=== PATIENT | female | born 1965 | race African-American/Black ===

== ENCOUNTER 2016-05-24 09:38 | Emergency (ER) ==
[2016-05-24 10:07] LABS: MANUAL DIFF NEEDED? NO
[2016-05-24 10:16] LABS: BASO% 0.9 % (0.0-0.8); EOS# 0.18 X1000 (0.0-0.7); EOS% 2.7 % (0.0-10.0); HEMATOCRIT 43.2 % (37.0-47.0); HEMOGLOBIN 13.9 g/dL (12.0-16.0); IMM GRAN# 0.02 X1000 (0.0-0.04); IMM GRAN% 0.3 % (0.0-0.5); LYMPH# 2.36 X1000 (1.2-3.4); LYMPH% 35.8 % (20.5-51.1); MCH 26.5 PG (27-31); MCHC 32.2 g/dL (33-37); MCV 82.3 FL (81-99); MONO# 0.79 X1000 (0.11-0.59); MPV 13.3 FL (7.4-10.4); NEUT% 48.3 % (42.2-75.2); PLT 206 X1000 (130-400); RBC 5.25 XMIL (4.2-5.4)
[2016-05-24 10:27] LABS: AGAP 11; ALKALINE PHOSPHATASE 110 U/L (32-104); BUN 9 mg/dL (8-22); CALCIUM 8.8 mg/dL (8.8-10.2); CHLORIDE 101 mmol/L (98-107); COSMO 275; GOT 19 U/L (10-30); GPT 17 U/L (10-36); POTASSIUM 3.9 mmol/L (3.5-5.1); SODIUM 139 mmol/L (136-145); TCO2 27 mmol/L (25-35); TOTAL BILIRUBIN 0.67 mg/dL (0.20-1.00); TOTAL PROTEIN 7.5 g/dL (6.3-8.3)
[2016-05-24 10:33] LABS: URINE CULTURE NEEDED? NO; URINE MICRO REVIEW NEEDED? NO; URINE SOURCE CLEAN CATCH
[2016-05-24 10:39] LABS: BILIRUBIN URINE NEGATIVE (NEGATIVE); BLOOD URINE TRACE (NEGATIVE); COLOR STRAW; GLUCOSE URINE NEGATIVE (NEGATIVE); LEUKOCYTES URINE NEGATIVE (NEGATIVE); NITRITE URINE NEGATIVE (NEGATIVE); PH URINE 7.5; PROTEIN URINE NEGATIVE (NEGATIVE); SP GRAVITY URINE 1.008; TURBIDITY URINE CLEAR (CLEAR); UROBILINOGEN URINE NORMAL (NORMAL)
[2016-05-24 10:41] LABS: UR EPITHELIAL CELLS <10 /HPF (<10); URINE BACTERIA NEGATIVE /HPF; URINE RBC <10 /HPF (<10); URINE WBC <10 /HPF (<10)
[2016-05-24 10:58] LABS: MAGNESIUM 1.9 mg/dL (1.5-2.7)
[2016-05-24] MEDS ORDERED: NORVASC PO ONE (11:01)
[2016-05-24 11:12] LABS: INR 1.03; PROTIME 10.9 Seconds (9.2-11.7); PTT 29.9 Seconds (22.0-36.0)
--- NOTE | 2016-05-24 11:49 | PROVIDER DOCUMENTATION ---
HPI-General Adult - General Chief Complaint: General Adult Stated Complaint: LIGHTHEADED,LEFT ARM TINGLING,DIZZINESS Time Seen by Provider: 05/24/16 10:31 Source: patient Allergies/Adverse Reactions: Patient Allergies Allergy/AdvReac Type Severity Reaction Status Date / Time ketorolac tromethamine * Allergy Intermediate VOMITING Verified 03/06/12 14:42 [From Toradol] aspirin Allergy Unknown Unknown Verified 03/06/12 14:42 Home Medications: Home Medication List Medication Instructions Recorded Confirmed Last Taken Type Metoprolol [Lopressor] 25 mg PO DIRECTED #60 tablet 03/06/12 Unknown Rx Montelukast [Singulair] 10 mg PO DAILY 03/06/12 03/06/12 03/05/12 History Amlodipine Besylate [Norvasc] 5 mg PO DAILY PRN PRN #10 tablet 05/24/16 Unknown Rx - History of Present Illness -Gen Adult Nature of Presenting Problems: 51 y/o F presented with non specific symptoms of occasional dizziness and lightheadedness, and she also noticed occasional numbness in the left arm. Patient does not have any significant past medical history except for lumbar radiculopathy and GERD. She denies any other symptoms. Location of Pain/Injury: reports: none Onset/Duration: reports: gradual Timing: reports: intermittent Review of Systems - Adult - REVIEW OF SYSTEMS - ADULT Constitutional: reports: no symptoms reported Eyes: reports: blurred vision Ears, Nose, Mouth & Throat: reports: no symptoms reported Cardiovascular: reports: no symptoms reported Respiratory: reports: no symptoms reported Gastrointestinal: reports: other (heart burn) Genitourinary: reports: no symptoms reported Musculoskeletal: reports: no symptoms reported Integumentary: reports: no symptoms reported Neurological: reports: dizziness/vertigo, numbness Psychiatric: reports: no symptoms reported Endocrine: reports: no symptoms reported Hematologic/Lymphatic: reports: no symptoms reported Allergic/Immunologic: reports: no symptoms reported Past History - Adult - PAST MEDICAL HISTORY-ADULT Review of Records: reports: Medications Reviewed, Social history reviewed & non- contributory. Major Childhood Illnesses: reports: denies history Cardiovascular: reports: denies history Respiratory: reports: denies history Gastrointestinal: reports: GERD Genitourinary: reports: denies history Musculoskeletal: reports: denies history Neurological: reports: degenerative disease (lumbar) Psychiatric: reports: denies history Endocrine/Immune: reports: denies history Physical Exam-General - PHYSICAL EXAM-ADULT Initial Vital Signs Reviewed: Yes - CONSTITUTIONAL General Appearance: appears well - EYES Eyes: PERRL/EOMI - HEAD, EARS, NOSE, MOUTH & THROAT HENMT: normocephalic/atraumatic - NECK Neck: full range of motion, supple - RESPIRATORY Respiratory: lungs clear, normal breath sounds - CARDIOVASCULAR Cardiovascular: regular rate, rhythm - GASTROINTESTINAL (ABDOMEN) Abdominal Exam: non tender, soft - MUSCULOSKELETAL Back Exam: normal inspection Extremity: normal range of motion, normal gait DTR: knee (R): 2+, knee (L): 2+ - NEUROLOGIC Neurologic: grossly normal, no motor/sensory deficits. negative: facial droop, focal weakness - PSYCHIATRIC Psych/Mental Status: oriented x 3 Progress - PLAN OF CARE/RESULTS Progress/Plan/Lab Results: Laboratory Tests 05/24/16 05/24/16 05/24/16 09:54 09:54 09:54 WBC 6.59 RBC 5.25 Hgb 13.9 Hct 43.2 MCV 82.3 MCH 26.5 L MCHC 32.2 L RDW Std Deviation 13.2 Plt Count 206 MPV 13.3 H Immature Gran % (Auto) 0.3 Neut % (Auto) 48.3 Lymph % (Auto) 35.8 [place] % (Auto) 12.0 H Eos % (Auto) 2.7 Baso % (Auto) 0.9 H Immature Gran # (Auto) 0.02 Neut # (Auto) 3.18 Lymph # (Auto) 2.36 [place] # (Auto) 0.79 H Eos # (Auto) 0.18 Baso # (Auto) 0.06 PT INR PTT (Actin FS) D-Dimer Sodium 139 Potassium 3.9 Chloride 101 Carbon Dioxide 27 Anion Gap 11 BUN 9 Creatinine 0.7 Estimated GFR/1.73 m2 > 60 BUN/Creatinine Ratio 13 Glucose 84 Calculated Osmolality 275 Calcium 8.8 Magnesium 1.9 Total Bilirubin 0.67 AST 19 ALT 17 Alkaline Phosphatase 110 H Creatine Kinase 89 Troponin T Total Protein 7.5 Albumin 4.0 Globulin 3.5 Albumin/Globulin Ratio 1.1 Urine Source Urine Color Urine Turbidity Urine pH Ur Specific [place] Urine Protein Ur Glucose (Stick) Ur Ketones (Stick) Urine Blood Urine Nitrite Urine Bilirubin Urobilinogen Dipstick Urine Leukocytes Urine WBC (Auto) Urine RBC (Auto) U Epithel Cells (Auto) Urine Bacteria (Auto) 05/24/16 05/24/16 05/24/16 09:54 09:54 09:54 WBC RBC Hgb Hct MCV MCH MCHC RDW Std Deviation Plt Count MPV Immature Gran % (Auto) Neut % (Auto) Lymph % (Auto) [place] % (Auto) Eos % (Auto) Baso % (Auto) Immature Gran # (Auto) Neut # (Auto) Lymph # (Auto) [place] # (Auto) Eos # (Auto) Baso # (Auto) PT 10.9 INR 1.03 PTT (Actin FS) 29.9 D-Dimer 0.32 Sodium Potassium Chloride Carbon Dioxide Anion Gap BUN Creatinine Estimated GFR/1.73 m2 BUN/Creatinine Ratio Glucose Calculated Osmolality Calcium Magnesium Total Bilirubin AST ALT Alkaline Phosphatase Creatine Kinase Troponin T < 0.010 Total Protein Albumin Globulin Albumin/Globulin Ratio Urine Source Urine Color Urine Turbidity Urine pH Ur Specific [place] Urine Protein Ur Glucose (Stick) Ur Ketones (Stick) Urine Blood Urine Nitrite Urine Bilirubin Urobilinogen Dipstick Urine Leukocytes Urine WBC (Auto) Urine RBC (Auto) U Epithel Cells (Auto) Urine Bacteria (Auto) 05/24/16 10:12 WBC RBC Hgb Hct MCV MCH MCHC RDW Std Deviation Plt Count MPV Immature Gran % (Auto) Neut % (Auto) Lymph % (Auto) [place] % (Auto) Eos % (Auto) Baso % (Auto) Immature Gran # (Auto) Neut # (Auto) Lymph # (Auto) [place] # (Auto) Eos # (Auto) Baso # (Auto) PT INR PTT (Actin FS) D-Dimer Sodium Potassium Chloride Carbon Dioxide Anion Gap BUN Creatinine Estimated GFR/1.73 m2 BUN/Creatinine Ratio Glucose Calculated Osmolality Calcium Magnesium Total Bilirubin AST ALT Alkaline Phosphatase Creatine Kinase Troponin T Total Protein Albumin Globulin Albumin/Globulin Ratio Urine Source CLEAN CATCH Urine Color STRAW Urine Turbidity CLEAR Urine pH 7.5 Ur Specific [place] 1.008 Urine Protein NEGATIVE Ur Glucose (Stick) NEGATIVE Ur Ketones (Stick) NEGATIVE Urine Blood TRACE A Urine Nitrite NEGATIVE Urine Bilirubin NEGATIVE Urobilinogen Dipstick NORMAL Urine Leukocytes NEGATIVE Urine WBC (Auto) <10 Urine RBC (Auto) <10 U Epithel Cells (Auto) <10 Urine Bacteria (Auto) NEGATIVE Vital Signs - 24 hr 05/24/16 09:42 Temperature 98.3 F Pulse Rate 94 H Respiratory 18 Rate Blood Pressure 172/84 O2 Sat by Pulse 100 Oximetry - EKG 1 Time of EKG reading by physician:: 11:50 EKG Read and Signed by:: Dolores Atwood EKG Interpretation (*Must complete 3 of following elements*): Normal Rate: 84 Rhythm: NSR QRS: normal NE Interval: normal ST Wave: normal - XRAY 1 XRAY Study: C-Spine (Mild degenerativde disc changes) 2 XRAY Study: Chest Impression: Normal Departure - Departure Time of Disposition Order: 11:52 DIAGNOSIS: Cervical radiculopathy, Hypertension DIAGNOSIS: (Ruled Out): Hypertensive urgency Disposition: HOME 01 Certified Medical Emergency: Emergent Condition: Fair Prescriptions: Amlodipine Besylate [Norvasc] 5 mg PO DAILY PRN PRN #10 tablet PRN Reason: Hypertension Referrals: Jose Luis Lam MD [Primary Care Provider] -
--- NOTE | 2016-05-24 13:17 | Diag Imaging Result Document ---
PROCEDURE NAME: CHEST-2 VIEWS - 05/24/2016 CHEST, 2 VIEWS: COMPARISON: 03/06/2012. FINDINGS: Heart size appears upper normal. Inspiration is mildly shallow. The lungs appear clear. There is no pleural effusion or pneumothorax identified. There is thoracic spondylosis noted. IMPRESSION: Mildly shallow inspiration. No other evidence of acute disease.
--- NOTE | 2016-05-24 13:19 | Diag Imaging Result Document ---
PROCEDURE NAME: CERVICAL SPINE COMPLETE - 05/24/2016 CERVICAL SPINE, 7 VIEWS: FINDINGS: There is mild curvature, convex to the left, which may be positional or may relate to mild scoliosis. There is straightening of the normal lordosis which may relate to muscle spasm. There are mild degenerative changes. There is no fracture, subluxation, or precervical soft tissue swelling identified. IMPRESSION: 1. Possible muscle spasm. 2. Mild degenerative changes. 3. No evidence of fracture or subluxation.
[2016-05-24] MEDS ORDERED: TYLENOL PM PO ONE (13:41)
[2016-05-24 14:54] VITALS: BP 169/96
--- NOTE | 2016-05-26 09:20 | EKG Report ---
Test Performed on : 05/24/2016 09:50:35 AM Test Reason : DIZZINESS Blood Pressure : / mmHG Vent. Rate : 084 BPM Atrial Rate : 084 BPM P-R Int : 142 ms QRS Dur : 080 ms QT Int : 380 ms P-R-T Axes : 066 -14 005 degrees QTc Int : 449 ms Normal sinus rhythm. Moderate voltage criteria for LVH, may be normal variant Borderline ECG When compared with ECG of 06-MAR-2012 14:26, No significant change was found Unconfirmed Result
== END 2016-05-24 14:54 | disposition home or self-care (01) ==
LOC: ED 09:38
DX: M54.12 Radiculopathy, cervical region (principal); I10 Essential (primary) hypertension; R42 Dizziness and giddiness; R20.2 Paresthesia of skin; R20.0 Anesthesia of skin; H53.8 Other visual disturbances; R12 Heartburn
CPT/HCPCS: 36415; 71020; 72050; 80053; 81001; 82550; 83735; 84484; 85025; 85379; 85610; 85730; 93005; 99284

== ENCOUNTER 2016-06-03 05:16 | Day surgery (SDC) ==
[2016-06-03] MEDS ORDERED: LR 1,000 ML ONE (06:09)
[2016-06-03] MEDS ORDERED: FENTANYL ONE (07:25)
[2016-06-03] MEDS ORDERED: DIPRIVAN 1% ONE ×2 (07:25→08:25)
[2016-06-03] MEDS ORDERED: MYLICON DROPS (DOSE) MISC ONE (07:49)
[2016-06-03 09:18] VITALS: BP 144/81
[2016-06-03] MEDS ORDERED: XYLOCAINE-MPF 2% ONE (09:35)
--- NOTE | 2016-06-04 04:03 | OPERATIVE NOTE ---
PROCEDURE DATE: 06/03/2016 REFERRING PHYSICIAN: Jose Luis Lam MD INDICATION FOR PROCEDURE: 1. Dysphagia. 2. Epigastric pain. 3. GERD. 4. Known gastroparesis. 5. History of NSAID use. PROCEDURE PERFORMED: Esophagogastroduodenoscopy with dilation. CONSENT: Informed consent was obtained from the patient prior to the procedure. The risks, benefits, and alternatives were discussed. MEDICATIONS: The patient received monitored anesthesia care. PERFORMING PHYSICIAN: Roula Dominguez MD ASSISTANTS: 1. MARIUSZ Del Toro 2. Delia Lane RN 3. Elvin Lynn CRNA 4. Fortino De La O MD (anesthesia). COMPLICATIONS: There were no complications. ESTIMATED BLOOD LOSS: Less than 1 mL. SPECIMENS REMOVED: None. FINDINGS: After sedation was achieved, the upper endoscope was inserted to the 2nd portion of the duodenum. The hypopharynx appeared endoscopically normal. Upon insertion of the scope into the upper esophageal sphincter, there was mild resistance. The tubular esophagus appeared grossly normal. There was a mildly restricted Schatzki's ring at the GE junction and in the distal esophagus at 40 cm. In the gastric lumen, there was nonerosive gastritis. On retroflexed view, there were a few scattered AVMs with no stigmata of bleeding. On forward view, the pylorus appeared normal. In the duodenal bulb, there was mild duodenitis as well as, thick mucoid secretions. The scope was retracted into the gastric lumen, and a guidewire was placed through the scope. Using the Savary dilators, 51-Congolese and 54-Congolese, the esophagus was dilated. On second look endoscopy confirmed the presence of small amount heme at both the upper esophageal sphincter, as well as the lower esophageal sphincter consistent with successful dilation. The lumen was then decompressed and the scope was removed without incident. IMPRESSION: 1. 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 2. Schatzki's ring at the GE junction status post dilation. 3. Nonerosive gastritis. 4. Duodenitis. 5. 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 RECOMMENDATION: 1. Begin a soft food diet overnight. We discussed the importance of a possible sore throat and its management. 2. Continue omeprazole 40 mg p.o. b.i.d. 3. Begin Carafate 1 g p.o. 4 times a day for 12 weeks and then stop. 4. Resumed gastroparesis diet. 5. The patient is currently using NSAIDs. I recommend that she use those sparingly if at all for her severe arthritis. 6. Begin hot p.o. Bi-Flex triple strength 1 twice a day for pain control. 7. We will have the patient return to clinic in 4-6 weeks to assess interval progress.
== END 2016-06-03 09:10 | disposition home or self-care (01) ==
LOC: ENDO 05:16
PROVIDERS: ATTEND Internal Medicine Gastroenterology
DX: K22.2 Esophageal obstruction (principal); K22.0 Achalasia of cardia; K29.70 Gastritis, unspecified, without bleeding; K29.80 Duodenitis without bleeding; Q27.33 Arteriovenous malformation of digestive system vessel; K21.9 Gastro-esophageal reflux disease without esophagitis; I10 Essential (primary) hypertension
CPT/HCPCS: J3010; J7120